=== PATIENT | male | born 1950 | race Two or more races ===

== ENCOUNTER 2017-07-13 11:55 | Day surgery (SDC) | payer MEDICARE, OTHER ==
--- NOTE | 2017-07-06 12:24 | RADRPT ---
PROCEDURE: Chest x-ray CLINICAL INDICATION: Preop TECHNIQUE: Chest single view COMPARISON: None FINDINGS: The heart is normal in size. The pulmonary vessels are normal in caliber. The lungs are clear. Th e costophrenic angles are sharp. The visualized bony thorax is unremarkable. IMPRESSION: No acute cardiopulmonary disease. RPTAT: HH .Leif Black MD, Date Time Electronically viewed and signed by .eLif Black MD, MD on 07/06/2017 12:24 .W/
[2017-07-06 12:55] LABS: BASOPHILS % 0.6 % (0.0-2.0); EOSINOPHILS # 0.1 10^3/ul (0.0-0.5); EOSINOPHILS % 0.9 % (0.0-7.0); HEMOGLOBIN 13.5 g/dl (14.0-18.0); LYMPHOCYTES # 2.5 10^3/ul (0.8-2.9); LYMPHOCYTES % 39.1 % (15.0-51.0); MEAN CORPUSCULAR HGB CONC 32.9 g/dl (32.0-37.0); MONOCYTE # 0.5 10^3/ul (0.3-0.9); MONOCYTES % 8.3 % (0.0-11.0); NEUTROPHIL # 3.3 10^3/ul (1.6-7.5); NEUTROPHILS % 50.9 % (39.0-77.0); PLATELET COUNT 276 10^3/UL (140-415); RED BLOOD COUNT 4.66 10^6/ul (4.70-6.10); RED CELL DISTRIBUTION WIDTH 13.9 % (11.5-14.5); WHITE BLOOD COUNT 6.5 10^3/ul (4.8-10.8)
[2017-07-06 13:00] LABS: ADD UMIC NO; UR ASCORBIC ACID 40 mg/dL (NEGATIVE); UR BILIRUBIN (Dip) NEGATIVE (NEGATIVE); UR BLOOD (Dip) NEGATIVE (NEGATIVE); UR CLARITY CLEAR (CLEAR); UR COLOR YELLOW (YELLOW); UR GLUCOSE (Dip) NEGATIVE (NEGATIVE); UR KETONES (Dip) NEGATIVE (NEGATIVE); UR LEUKOCYTE ESTERASE (Dip) NEGATIVE Leu/ul (NEGATIVE); UR NITRITE (Dip) NEGATIVE (NEGATIVE); UR SPECIFIC GRAVITY (Dip) 1.023 (1.003-1.030); UR TOTAL PROTEIN (Dip) NEGATIVE (NEGATIVE); UR UROBILINOGEN (Dip) NEGATIVE (NEGATIVE)
--- NOTE | 2017-07-06 15:48 | RADRPT ---
Vent Rate: 62 bpm RR Interval: 0 msec MS Interval: 202 msec QRS Duration: 84 msec QT Interval: 456 msec QTC Interval: 462 msec P-R-T [place]: 55 - 28 - 48 degrees Normal sinus rhythm Prolonged QT Abnormal ECG Electronically Signed By: Louis Leavitt [id number]
[~2017-07-13] VITALS: Ht 172.7 cm; Wt 108.1 kg
[2017-07-13] VITALS (13 sets, daily range): BP systolic 133–149; BP diastolic 74–91; PULSE 60–74; RESP 17–18; Ht 172.7 cm; Wt 108.1 kg
[~2017-07-13 11:55] MED LIST: ATORVASTATIN PO; LOSARTAN PO; NEXIUM PO
[2017-07-13] MEDS ORDERED: OMEP40CA6 PO (12:31)
[2017-07-13] MEDS ORDERED: LOSA50TA6 PO (12:32)
[2017-07-13] MEDS ORDERED: ATOR20TA38 PO (12:32)
[2017-07-13] MEDS ORDERED: CYCL1DRO BOTH EYES (12:33)
[2017-07-13] MEDS ORDERED: BIMA2.5D BOTH EYES (12:34)
[2017-07-13] MEDS ORDERED: OLOP2.5D5 OP (12:35)
[2017-07-13] MEDS ORDERED: COMBIG5 BOTH EYES (12:36)
--- NOTE | 2017-07-13 14:15 | HPN ---
Date/Time of Note Date/Time of Note DATE: 07/13/17 TIME: 14:15 Interval H&P Admission Note Pt. seen H&P reviewed: No system changes ANGELIKA BETHEA MD Jul 13, 2017 14:15
[2017-07-13] MEDS ORDERED: SUCCINYLCHOLINE CHLORIDE 100 MG/5 ML SYG IV ONE (16:20)
[2017-07-13] MEDS ORDERED: GLYCOPYRROLATE 0.4 MG INJ ONE ×3 (16:20→18:22)
[2017-07-13] MEDS ORDERED: PROPOFOL 20 ML ONE (16:20)
[2017-07-13] MEDS ORDERED: ROCURONIUM 50 MG INJ ONE (16:20)
[2017-07-13] MEDS ORDERED: NEOSTIGMINE 3 MG/3 ML SYRINGE ONE ×2 (16:20→18:22)
[2017-07-13] MEDS ORDERED: MEPERIDINE 100 MG INJ ONE (16:20)
[2017-07-13] MEDS ORDERED: LIDOCAINE 2% (SDV) 5 ML INJ ONE (16:20)
[2017-07-13] MEDS ORDERED: CEFAZOLIN 1 GM INJ ONE (16:24)
[2017-07-13] MEDS ORDERED: LABETALOL HCL 20MG INJ IV PRN (17:30)
[2017-07-13] MEDS ORDERED: OXYCODONE/ACETAMINOPHEN (5/325) TAB PO PRN ×2 (17:30)
[2017-07-13] MEDS ORDERED: ONDANSETRON 4 MG INJ IV PRN (17:30)
[2017-07-13] MEDS ORDERED: hydrALAzine 20 MG INJ IV PRN (17:30)
[2017-07-13] MEDS ORDERED: FENTAnyl 50 MCG/ML VIAL IV PRN ×3 (17:30)
[2017-07-13] MEDS ORDERED: MIDAZOLAM 1 MG/ML 2 ML INJ IV PRN (17:30)
[2017-07-13] MEDS ORDERED: HYDROmorphONE (0.2 MG/ML) 10ML SYG IV PRN ×3 (17:30)
[2017-07-13] MEDS ORDERED: MEPERIDINE 25 MG INJ IV PRN (17:30)
[2017-07-13] MEDS ORDERED: EPHEDrine SULFATE 50 MG/5 ML SYG IV PRN (17:30)
[2017-07-13] MEDS ORDERED: METOCLOPRAMIDE 10 MG INJ IV PRN (17:30)
[2017-07-13] MEDS ORDERED: DIPHENHYDRAMINE 50 MG INJ IV PRN (17:30)
--- NOTE | 2017-07-13 18:46 | SIPON ---
Date/Time of Note Date/Time of Note DATE: 07/13/17 TIME: 18:44 Operative Report Preoperative Diagnosis right wrist introsseous ganglion Postoperative Diagnosis same Operation/Procedure Performed debridment Surgeon Moris holman staff Anesthesia: general Estimated blood loss: minimal Transfusion Required none Specimen stuff in the trap if any Grafts/Implants none Complications none ANGELIKA BETHEA MD Jul 13, 2017 18:46
--- NOTE | 2017-07-14 04:35 | OPR ---
DATE OF OPERATION: 07/13/2017 PREOPERATIVE DIAGNOSIS: Small interosseous cyst, distal and scaphoid in the triscaphe joint, right wrist. POSTOPERATIVE DIAGNOSIS: Small interosseous cysts, distal and scaphoid in the triscaphe joint, right wrist. PROCEDURE: Arthroscopic examination and arthroscopic debridement. SURGEON: Angelika Subramanian MD DOMESTIC LAUNDRY WORKER: Staff ANESTHESIA TECHNIQUE: General anesthetic by the anesthesiologist, Dr. Abdi. SURGICAL PAUSE: I examined the patient in the preop holding area. I demonstrated the arthroscopic portals to the patient, marked the site, confirmed with the patient the operative procedure and plan. INFORMED CONSENT: At the time we scheduled the operative procedure, we talked about the risks and hazards of surgery, mentioning operative mortality, wound infection, nerve injury, good result, bad result, potential complications. Patient signed the note, confirming that informed consent conversation. DESCRIPTION OF PROCEDURE: The patient was taken to surgery, anesthetized as above, sterile prep and drape performed. We had pre-prepped, strapped the upper arm to the table, said it was secure. After the prep, we put the index and long fingers up in vertical finger traps and put the wrist on slight traction. We introduced a scope through a 3-4 portal, and used instruments in a radial portal and a mid-dorsal portal. We inspected both the radiocarpal joint and the midcarpal joint. Intraoperative images were recorded and we debrided the radial recess in the radiocarpal joint radial to the scaphoid, and in the midcarpal joint over the triscaphe joint and scaphotrapezial trapezoid, we did further debridement, removing the very small ganglion cyst, documented with images. It was all done through arthroscopic portals. After what appeared to be an adequate debridement, apparent removal of the cyst, the instruments were removed. The instruments used for the debridement were arthroscopic punches and arthroscopic lana, no electrocautery. All entrances into the wounds were using in the standard atraumatic technique, which was using a very superficial skin incision, using just the tip of the 15 blade, not deep, just a mm to get through the skin, introduction of needles for orientation, expansion of the portals using small mosquitos to expand atraumatic the portals and introduction of the instruments through these atraumatically created portal. The goal to this particular atraumatic technique is to avoid significant tendon artery and nerve injury, hopefully to push them to one side. The wounds were dressed and a bulky cotton dressing applied. The operative procedure was about 45 minutes. The patient is in recovery. DISCHARGE MEDICATIONS: 1. Hydrocodone with acetaminophen. 2. Keflex. FOLLOWUP: Will be our office in a week. We will start him on early range of motion. Dictated By: ANGELIKA RODRIGUEZ/TOMY Conf#: [id number] DID#: [id number]
== END 2017-07-13 20:28 | disposition home or self-care (01) ==
LOC: SDS 11:55
PROVIDERS: ATTEND Orthopaedic Surgery Hand Surgery
DX: M67.431 Ganglion, right wrist (principal); M25.831 Other specified joint disorders, right wrist; I10 Essential (primary) hypertension; E78.5 Hyperlipidemia, unspecified; E66.9 Obesity, unspecified
CPT/HCPCS: 29846; 71010; 81003; 85025; 93005; J0360; J0690; J2175; J2710; J2765